=== PATIENT | male | born 1955 | race Caucasian/White ===

== ENCOUNTER 2020-08-22 10:59 | Inpatient (IN) ==
[2020-08-22] MEDS ORDERED: FUROSEMIDE 40 MG/4 ML VIAL IV STA (11:32)
[2020-08-22 12:27] LABS: INR 2.2; Partial Thromboplastin Time 34.2 SECS (23.9-33.8)
[2020-08-22 12:55] LABS: Albumin 3.5 G/DL (3.4-5.0); Bilirubin,Total 1.5 MG/DL (0.2-1.0); Calcium 9.1 MG/DL (8.5-10.1); Osmolality,Calculated 270.1 MOS/KG (273-304); Total Protein 8.2 G/DL (6.4-8.3)
[2020-08-22 13:24] LABS: Basophils % 0.5 % (0.0-0.8); Eosinophils % 0.2 % (0.00-10.9); Hematocrit 37.3 VOL% (42.0-52.0); Hemoglobin 11.8 GM/DL (14.0-18.0); Immature Granulocytes % 0.6 %; Immature Granulocytes Absolute 0.04 #; Lymphocytes % 14.7 % (21.2-54.2); Mean Corpuscular HGB Conc 31.6 GM/DL (32-36); Mean Corpuscular Volume 95.2 FL (87-102); Mean Platelet Volume 12.2 FL (9.6-12.0); Monocytes % 8.5 % (1.7-12.7); Neutrophils % 75.5 % (38.7-73.9); Red Blood Count 3.92 MC/CUMM (3.8-5.5); Red Cell Distribution Width 14.5 % (9.3-17.3); White Blood Count 6.6 T/CUMM (4-12)
[2020-08-22 13:30] LABS: Platelet Count 59 T/CUMM (130-400)
[2020-08-22] MEDS ORDERED: DEXTROSE 50% 25 GM/50 ML VIAL IV STA (14:14)
[2020-08-22] MEDS ORDERED: DEXTROSE 50% 25 GM/50 ML VIAL IV PRN (15:14)
[2020-08-22] MEDS ORDERED: ONDANSETRON 4 MG/2 ML VIAL IV PRN (15:14)
[2020-08-22] MEDS ORDERED: LACTULOSE 20 GM/30 ML UDCUP PO PRN (15:14)
[2020-08-22] MEDS ORDERED: GLUCAGON 1 MG VIAL IM PRN (15:14)
[2020-08-22] MEDS ORDERED: hydrALAZINE 20 MG/1 ML VIAL IV PRN (15:14)
[2020-08-22] MEDS ORDERED: DOCUSATE SODIUM 100 MG CAPSULE PO PRN (15:14)
[2020-08-22 16:01] LABS: Hypochromasia Slight; Macrocytosis Slight; Platelet Estimate Decreased
[2020-08-22] MEDS: WARFARIN 5 MG TABLET PO SCH (18:00)
[2020-08-22] MEDS: ALBUTEROL 2.5 MG/3 ML NEB RESP TX SCH (19:02)
[2020-08-22] MEDS ORDERED: carvediloL 25 MG TABLET PO SCH (21:00)
[2020-08-22] MEDS ORDERED: MORPHINE 4 MG/1 ML VIAL IV STA (21:09)
[2020-08-22] MEDS: INSULIN LISPRO 100 UNIT/ML SUBCUT SCH (21:45)
[2020-08-22] MEDS: hydrALAZINE 25 MG TABLET PO SCH (22:01)
[2020-08-23] MEDS: FUROSEMIDE 40 MG/4 ML VIAL IV SCH ×2 (00:19→11:52)
[2020-08-23] MEDS: ALBUTEROL 2.5 MG/3 ML NEB RESP TX SCH ×4 (02:43→19:43)
[2020-08-23 04:07] LABS: Basophils % 0.4 % (0.0-0.8); Eosinophils # 0.1 10*3/uL (0.0-0.87); Eosinophils % 1.1 % (0.00-10.9); Hematocrit 36.3 VOL% (42.0-52.0); Hemoglobin 11.4 GM/DL (14.0-18.0); Immature Granulocytes % 0.7 %; Immature Granulocytes Absolute 0.06 #; Lymphocytes # 1.3 10*3/uL (1.4-4.0); Lymphocytes % 15.3 % (21.2-54.2); Mean Corpuscular HGB Conc 31.4 GM/DL (32-36); Mean Corpuscular Volume 94.8 FL (87-102); Mean Platelet Volume 11.6 FL (9.6-12.0); Monocytes % 9.1 % (1.7-12.7); Neutrophils % 73.4 % (38.7-73.9); Platelet Count 59 T/CUMM (130-400); Red Blood Count 3.83 MC/CUMM (3.8-5.5); Red Cell Distribution Width 14.5 % (9.3-17.3); White Blood Count 8.4 T/CUMM (4-12)
[2020-08-23 04:22] LABS: INR 2.3
[2020-08-23 04:26] LABS: PT Patient Result 23.5 SECS (9.8-11.9)
[2020-08-23 04:38] LABS: Hypochromasia 1+; Microcytosis 1+; Platelet Estimate Decreased
[2020-08-23 04:40] LABS: Albumin 3.6 G/DL (3.4-5.0); Bilirubin,Total 1.7 MG/DL (0.2-1.0); Calcium 9.4 MG/DL (8.5-10.1); Osmolality,Calculated 273.1 MOS/KG (273-304); Risk Ratio 3.45; VLDL CHOLESTEROL 21.6 MG/DL
[2020-08-23] MEDS: INSULIN LISPRO 100 UNIT/ML SUBCUT SCH ×5 (07:50→21:42)
[2020-08-23] MEDS ORDERED: DILTIAZEM CD 240 MG CAPSULE PO SCH (09:00)
[2020-08-23] MEDS: POTASSIUM CHLORIDE 20 MEQ TABLET PO SCH (09:50)
[2020-08-23] MEDS: ISOSORBIDE MONONITRATE 30 MG TABLET PO SCH ×2 (09:50→11:51)
[2020-08-23] MEDS: LOSARTAN 25 MG TABLET PO SCH (09:50)
[2020-08-23] MEDS: PANTOPRAZOLE 40 MG TABLET PO SCH (09:50)
[2020-08-23] MEDS: hydrALAZINE 25 MG TABLET PO SCH ×2 (09:50→20:55)
[2020-08-23] MEDS: SPIRONOLACTONE 50 MG TABLET PO SCH (11:51)
[2020-08-23] MEDS: carvediloL 25 MG TABLET PO SCH ×2 (12:37→17:35)
[2020-08-23] MEDS ORDERED: DIGOXIN 0.25 MG TABLET PO SCH (13:00)
[2020-08-23] MEDS: ACETAMINOPHEN 325 MG TABLET PO PRN (14:26)
[2020-08-23] MEDS: TRIAMCINOLONE 0.1% CREAM 15 GM TUBE TOP SCH (14:30)
[2020-08-24] MEDS: FUROSEMIDE 40 MG/4 ML VIAL IV SCH ×2 (00:42→12:18)
[2020-08-24] MEDS: ALBUTEROL 2.5 MG/3 ML NEB RESP TX SCH ×5 (02:02→19:03)
[2020-08-24 05:56] LABS: INR 2.8; PT Patient Result 28.9 SECS (9.8-11.9)
[2020-08-24] MEDS ORDERED: ASCORBIC ACID 500 MG TABLET PO SCH (09:00)
[2020-08-24] MEDS ORDERED: ASPIRIN EC 81 MG TABLET PO SCH (09:00)
[2020-08-24] MEDS: ACETAMINOPHEN 325 MG TABLET PO PRN (09:52)
[2020-08-24] MEDS: PANTOPRAZOLE 40 MG TABLET PO SCH (09:52)
[2020-08-24] MEDS: LOSARTAN 25 MG TABLET PO SCH (09:52)
[2020-08-24] MEDS: SPIRONOLACTONE 50 MG TABLET PO SCH (09:52)
[2020-08-24] MEDS: POTASSIUM CHLORIDE 20 MEQ TABLET PO SCH (09:52)
[2020-08-24 09:54] LABS: Basophils % 0.4 % (0.0-0.8); Eosinophils % 0.1 % (0.00-10.9); Hematocrit 35.5 VOL% (42.0-52.0); Hemoglobin 11.2 GM/DL (14.0-18.0); Immature Granulocytes % 0.8 %; Immature Granulocytes Absolute 0.08 #; Lymphocytes % 9.5 % (21.2-54.2); Mean Corpuscular HGB Conc 31.5 GM/DL (32-36); Mean Corpuscular Volume 93.7 FL (87-102); Mean Platelet Volume 11.8 FL (9.6-12.0); Monocytes % 8.9 % (1.7-12.7); Neutrophils % 80.3 % (38.7-73.9); Red Blood Count 3.79 MC/CUMM (3.8-5.5); Red Cell Distribution Width 14.5 % (9.3-17.3); White Blood Count 10.4 T/CUMM (4-12)
[2020-08-24 09:55] LABS: Platelet Count 76 T/CUMM (130-400)
[2020-08-24] MEDS: hydrALAZINE 25 MG TABLET PO SCH (09:59)
[2020-08-24] MEDS: carvediloL 25 MG TABLET PO SCH ×2 (09:59→17:30)
[2020-08-24] MEDS: INSULIN LISPRO 100 UNIT/ML SUBCUT SCH ×3 (10:00→17:30)
[2020-08-24] MEDS: TRIAMCINOLONE 0.1% CREAM 15 GM TUBE TOP SCH (10:00)
[2020-08-24] MEDS: ISOSORBIDE MONONITRATE 30 MG TABLET PO SCH (10:00)
[2020-08-24 10:11] LABS: Calcium 9.4 MG/DL (8.5-10.1); Osmolality,Calculated 280.1 MOS/KG (273-304)
[2020-08-24 10:12] LABS: Hypochromasia 1+; Microcytosis 1+; Polychromasia Slight; Spherocytes Slight
[2020-08-24 10:13] LABS: Platelet Estimate Decreased
[2020-08-24] MEDS ORDERED: MAGNESIUM SULF RIDER 2 GM in PREMIX 1 EACH IV ONE (15:57)
[2020-08-24 16:25] VITALS: BP 122/63
[2020-08-24] MEDS: WARFARIN 5 MG TABLET PO SCH (18:30)
[2020-08-25] MEDS ORDERED: MULTIVITAMIN (CENTRUM) TABLET PO SCH (09:00)
== END 2020-08-24 19:29 | disposition home or self-care (01) | DRG 308 ==
LOC: EDBD → EDUNIT# → N.ED 10:59 → N.EDINP 15:14 → SUATTDRO 15:14 → N.TELEN 08-23 10:25
PROVIDERS: ADMIT Internal Medicine; ATTEND Family Medicine

== ENCOUNTER 2022-01-18 13:19 | Inpatient (IN) ==
[2022-01-18 13:13] LABS: Basophils % 0.8 % (0.0-0.8); Eosinophils # 0.1 10*3/uL (0.0-0.87); Eosinophils % 2.8 % (0.00-10.9); Hematocrit 28.1 VOL% (42.0-52.0); Hemoglobin 8.2 GM/DL (14.0-18.0); Immature Granulocytes % 0.6 %; Immature Granulocytes Absolute 0.03 #; Lymphocytes # 0.9 10*3/uL (1.4-4.0); Lymphocytes % 17.3 % (21.2-54.2); Mean Corpuscular HGB Conc 29.2 GM/DL (32-36); Mean Corpuscular Volume 77.2 FL (87-102); Mean Platelet Volume 11.2 FL (9.6-12.0); Monocytes # 0.6 10*3/uL (0.11-0.8); Monocytes % 11.2 % (1.7-12.7); Neutrophils % 67.3 % (38.7-73.9); Platelet Count 78 T/CUMM (130-400); Red Blood Count 3.64 MC/CUMM (3.8-5.5); Red Cell Distribution Width 17.8 % (9.3-17.3)
[2022-01-18 13:28] LABS: Albumin 3.4 G/DL (3.4-5.0); Calcium 9.7 MG/DL (8.5-10.1); Osmolality,Calculated 275.4 MOS/KG (273-304); Potassium 4.3 MMOL/L (3.5-5.1); Total Protein 7.8 G/DL (6.4-8.2)
[2022-01-18 13:30] LABS: Partial Thromboplastin Time 36.2 SECS (23.7-32.9)
[2022-01-18 13:32] LABS: PT Patient Result 21.3 SECS (10.5-12.0)
[2022-01-18 13:42] LABS: Anisocytosis 1+; Hypochromia 1+; Microcytosis 1+; Polychromasia Slight
[2022-01-18] MEDS ORDERED: ACETAMINOPHEN 325 MG TABLET PO PRN (16:37)
[2022-01-18] MEDS ORDERED: ONDANSETRON 4 MG/2 ML VIAL IV PRN (16:37)
[2022-01-18] MEDS ORDERED: SIMETHICONE CHEW 125 MG TABLET PO PRN (16:37)
[2022-01-18] MEDS ORDERED: BISACODYL 5 MG TABLET PO PRN (16:37)
[2022-01-18] MEDS ORDERED: DEXTROSE 50% 25 GM/50 ML VIAL IV PRN (16:37)
[2022-01-18] MEDS ORDERED: ALUMINUM/MAGNES/SIMETH MAX STR 30 ML UDCUP PO PRN (16:37)
[2022-01-18] MEDS ORDERED: ALBUTEROL 2.5 MG/3 ML NEB RESP TX PRN (16:37)
[2022-01-18] MEDS ORDERED: hydrALAZINE 20 MG/1 ML VIAL IV PRN (16:37)
[2022-01-18] MEDS ORDERED: GLUCAGON 1 MG VIAL IM PRN ×2 (16:37)
[2022-01-18] MEDS ORDERED: DEXTROSE 10% 250 ML BAG IV PRN (16:56)
[2022-01-18] MEDS ORDERED: carvediloL 25 MG TABLET PO SCH (17:00)
[2022-01-18 17:18] LABS: % Iron Saturation 5.1 % (18-50)
[2022-01-18] MEDS ORDERED: MAGNESIUM SULF RIDER 2 GM/50 ML PREMIX IV ONE ×2 (17:47→20:00)
[2022-01-18] MEDS ORDERED: FUROSEMIDE 40 MG/4 ML VIAL IV SCH ×2 (18:00→20:00)
[2022-01-18] MEDS: ALBUTEROL/IPRATROPIUM 3 ML NEB RESP TX SCH (19:35)
[2022-01-18] MEDS: carvediloL 25 MG TABLET PO SCH (20:55)
[2022-01-18] MEDS: DOCUSATE SODIUM 100 MG CAPSULE PO SCH (20:55)
[2022-01-18] MEDS: methylPREDNISolone SOD SUC 40 MG/1 ML VIAL IV SCH (20:55)
[2022-01-18] MEDS: INSULIN LISPRO 100 UNIT/ML SUBCUT SCH (20:55)
[2022-01-19] MEDS: ALBUTEROL/IPRATROPIUM 3 ML NEB RESP TX SCH ×4 (00:05→19:16)
[2022-01-19 00:59] LABS: Basophils % 0.6 % (0.0-0.8); Eosinophils % 0.2 % (0.00-10.9); Hematocrit 28.5 VOL% (42.0-52.0); Hemoglobin 8.4 GM/DL (14.0-18.0); Immature Granulocytes % 1.1 %; Immature Granulocytes Absolute 0.06 #; Lymphocytes # 0.4 10*3/uL (1.4-4.0); Lymphocytes % 7.7 % (21.2-54.2); Mean Corpuscular HGB Conc 29.5 GM/DL (32-36); Mean Corpuscular Volume 76.8 FL (87-102); Mean Platelet Volume 10.7 FL (9.6-12.0); Monocytes # 0.2 10*3/uL (0.11-0.8); Monocytes % 4.2 % (1.7-12.7); Neutrophils % 86.2 % (38.7-73.9); Platelet Count 79 T/CUMM (130-400); Red Blood Count 3.71 MC/CUMM (3.8-5.5); Red Cell Distribution Width 17.8 % (9.3-17.3); White Blood Count 5.5 T/CUMM (4-12)
[2022-01-19 01:29] LABS: Calcium 9.8 MG/DL (8.5-10.1); Osmolality,Calculated 271.7 MOS/KG (273-304); Potassium 4.6 MMOL/L (3.5-5.1); Risk Ratio 2.78; Thyroid Stimulating Hormone 1.77 uIU/ml (0.358-3.74); VLDL Cholesterol 16.2 MG/DL
[2022-01-19 03:01] LABS: Hepatitis B Core IgM Quant < 0.05 Index; Hepatitis B Surface Ag Quant < 0.10 Index; Hepatitis B Surface Ag Result Non-Reactive (NonReactive); Hepatitis C Virus Ab Quant 0.09 Index; Hepatitis C Virus Ab Result Non-Reactive (NonReactive)
[2022-01-19] MEDS: methylPREDNISolone SOD SUC 40 MG/1 ML VIAL IV SCH ×3 (04:30→21:23)
[2022-01-19] MEDS: DOCUSATE SODIUM 100 MG CAPSULE PO SCH ×2 (08:54→21:23)
[2022-01-19] MEDS: SPIRONOLACTONE 50 MG TABLET PO SCH (08:54)
[2022-01-19] MEDS: carvediloL 25 MG TABLET PO SCH ×2 (08:54→18:05)
[2022-01-19] MEDS: DAPAGLIFLOZIN 10 MG TABLET PO SCH (08:54)
[2022-01-19] MEDS: DILTIAZEM CD 180 MG CAPSULE PO SCH (08:54)
[2022-01-19] MEDS: TAMSULOSIN 0.4 MG CAPSULE PO SCH (08:55)
[2022-01-19] MEDS: POLYETHYLENE GLYCOL POWDER 17 GM PACK PO SCH (08:55)
[2022-01-19] MEDS: ISOSORBIDE MONONITRATE 30 MG TABLET PO SCH (08:55)
[2022-01-19] MEDS: POTASSIUM CHLORIDE 10 MEQ TABLET PO SCH (08:55)
[2022-01-19] MEDS: PANTOPRAZOLE 40 MG TABLET PO SCH (08:55)
[2022-01-19] MEDS: ASCORBIC ACID 500 MG TABLET PO SCH (08:55)
[2022-01-19] MEDS: INSULIN LISPRO 100 UNIT/ML SUBCUT SCH ×4 (10:30→21:31)
[2022-01-19] MEDS: FERRIC GLUCONATE COMPLEX 125 MG in SODIUM CHLORIDE 0.9% 100 ML IV SCH (12:30)
[2022-01-19] MEDS: ZINC OXIDE PASTE 113 GM TUBE TOP SCH (22:09)
[2022-01-20] MEDS: ALBUTEROL/IPRATROPIUM 3 ML NEB RESP TX SCH ×3 (00:36→14:03)
[2022-01-20] MEDS: methylPREDNISolone SOD SUC 40 MG/1 ML VIAL IV SCH ×2 (04:25→12:31)
[2022-01-20 05:54] LABS: Hemoglobin 8.4 GM/DL (14.0-18.0); Immature Granulocytes % 0.7 %; Immature Granulocytes Absolute 0.03 #; Lymphocytes # 0.4 10*3/uL (1.4-4.0); Lymphocytes % 9.4 % (21.2-54.2); Mean Corpuscular Volume 78.4 FL (87-102); Mean Platelet Volume 11.5 FL (9.6-12.0); Monocytes # 0.1 10*3/uL (0.11-0.8); Monocytes % 2.3 % (1.7-12.7); Neutrophils % 87.6 % (38.7-73.9); Platelet Count 127 T/CUMM (130-400); Red Cell Distribution Width 18.1 % (9.3-17.3); White Blood Count 4.3 T/CUMM (4-12)
[2022-01-20 06:07] LABS: Calcium 9.4 MG/DL (8.5-10.1); Osmolality,Calculated 278.5 MOS/KG (273-304); Potassium 4.8 MMOL/L (3.5-5.1)
[2022-01-20] MEDS: INSULIN LISPRO 100 UNIT/ML SUBCUT SCH ×2 (08:56→12:31)
[2022-01-20] MEDS: DAPAGLIFLOZIN 10 MG TABLET PO SCH (08:56)
[2022-01-20] MEDS: TAMSULOSIN 0.4 MG CAPSULE PO SCH (08:56)
[2022-01-20] MEDS: POLYETHYLENE GLYCOL POWDER 17 GM PACK PO SCH (08:56)
[2022-01-20] MEDS: SPIRONOLACTONE 50 MG TABLET PO SCH (08:57)
[2022-01-20] MEDS: carvediloL 25 MG TABLET PO SCH (08:57)
[2022-01-20] MEDS: ISOSORBIDE MONONITRATE 30 MG TABLET PO SCH (08:57)
[2022-01-20] MEDS: POTASSIUM CHLORIDE 10 MEQ TABLET PO SCH (08:57)
[2022-01-20] MEDS: DILTIAZEM CD 180 MG CAPSULE PO SCH (08:57)
[2022-01-20] MEDS: ASCORBIC ACID 500 MG TABLET PO SCH (08:57)
[2022-01-20] MEDS: PANTOPRAZOLE 40 MG TABLET PO SCH (08:57)
[2022-01-20] MEDS: DOCUSATE SODIUM 100 MG CAPSULE PO SCH (08:57)
[2022-01-20] MEDS: FERRIC GLUCONATE COMPLEX 125 MG in SODIUM CHLORIDE 0.9% 100 ML IV SCH (08:58)
[2022-01-20] MEDS: ZINC OXIDE PASTE 113 GM TUBE TOP SCH (10:04)
[2022-01-20 12:49] VITALS: BP 120/66
== END 2022-01-20 14:30 | disposition home or self-care (01) | DRG 291 ==
LOC: N.ED 13:19 → N.TELES 16:37
PROVIDERS: ADMIT Internal Medicine; ATTEND Internal Medicine